=== PATIENT | male | born 1995 | race Caucasian/White ===

== ENCOUNTER 2017-03-09 13:39 | Emergency (ER) | payer OTHER ==
[2017-03-09 13:46] VITALS: BP 156/83; PULSE 87; TEMP 97.9; BMI 27.4
--- NOTE | 2017-03-09 15:30 | PDOC ---
History of Present Illness - General Chief Complaint: Chest Pain Stated Complaint: CHEST PAIN, Time Seen by Provider: 03/09/17 15:05 History Source: Patient Exam Limitations: No Limitations - History of Present Illness Travel History: No Initial Comments: 03/09/17 15:26 22 year old with no significant medical or surgical history presents with epigastric pain that radiated into upper chest accompanied by occasional shortness of breath. Also reports feeling anxious or nervous at times. States this feeling causes him to feel shortness of breath. Denies dizziness, nausea or dizziness 03/09/17 16:17 03/09/17 16:27 Timing/Duration: reports: constant Quality: reports: aching Abdominal Pain Onset Location: reports: epigastric Activities at Onset: reports: sleep Treatment Prior to Arrive: improves with: analgesics Alleviating Factors: improves with: None Past History - Travel Traveled outside of the country in the last 30 days: No Close contact w/someone who was outside of country & ill: No - Past Medical History Allergies/Adverse Reactions: Allergies Allergy/AdvReac Type Severity Reaction Status Date / Time hydrogen peroxide Allergy Verified 03/09/17 16:06 PEROXIDE Allergy Uncoded 03/09/17 13:46 Home Medications: Ambulatory Orders Acetaminophen [Pain Relief] 650 mg PO Q4H #20 tablet.er 03/09/17 Lansoprazole [Prevacid 24Hr (OTC) -] 15 mg PO DAILY #30 cap.sr 03/09/17 Other medical history: DENIES - Surgical History Abdominal Surgery: Yes (HERNIA) - Psycho/Social/Smoking Cessation Hx Suicidal Ideation: No Smoking History: Never smoked Information on smoking cessation initiated: No Hx Alcohol Use: No Drug/Substance Use Hx: No Substance Use Type: None Abd/GI Specific PMHX - Complaint Specific PMHX Colitis: No Diverticulitis: No Gall Bladder Disease: No GERD: No Hepatitis: No Irritable Bowel Synd (IBS): No Pancreatitis: No GI Ulcer Disease: No Review of Systems - Review of Systems Able to Perform ROS?: Yes Is the patient limited Hungarian proficient: No Constitutional: No: Chills, Fever, Malaise, Night Sweats, Weakness HEENTM: No: Double Vision, Cataracts, Ear Pain, Ear Discharge, Nose Congestion, Throat Swelling Respiratory: Yes: Cough, Shortness of Breath Cardiac (ROS): No: Edema, Irregular Heart Rate, Lightheadedness, Palpitations ABD/GI: Yes: Indigestion. No: Abdominal Distended, Difficulty Swallowing, Abdominal cramping Musculoskeletal: No: Back Pain, Muscle Weakness Integumentary: No: Bruising, Lesions Neurological: No: Headache, Numbness *Physical Exam - Vital Signs Last Vital Signs Temp Pulse Resp BP Pulse Ox 97.9 F 87 18 156/83 97 03/09/17 13:43 03/09/17 13:43 03/09/17 13:43 03/09/17 13:43 03/09/17 13:43 - Physical Exam General Appearance: Yes: Nourished, Appropriately Dressed. No: Apparent Distress HEENT: positive: EOMI, PORSCHE, TMs Normal, Pharynx Normal Neck: positive: Supple. negative: Lymphadenopathy (R), Lymphadenopathy (L) Respiratory/Chest: positive: Lungs Clear, Normal Breath Sounds. 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 NML intact, Fully Oriented, Alert, Normal Mood/ Affect Medical Decision Making - Medical Decision Making 03/09/17 16:19 22 year old male with GERD and anxiety Ekg: normal sinus rhythm maalox given with good relief acetaminophen 1 gm also given d/c home referred to [facility] for anxiety [facility] for medical provider Rx: prevacid acetaminophen 03/09/17 16:26 *DC/Admit/Observation/Transfer Diagnosis at time of Disposition: Anxiety as acute reaction to exceptional stress GERD (gastroesophageal reflux disease) Qualifiers: Esophagitis presence: esophagitis presence not specified Qualified Code(s): K21.9 - Gastro-esophageal reflux disease without esophagitis - Discharge Dispostion Disposition: HOME Condition at time of disposition: Good Admit: No - Prescriptions Prescriptions: Acetaminophen [Pain Relief] 650 mg PO Q4H #20 tablet.er Lansoprazole [Prevacid 24Hr (OTC) -] 15 mg PO DAILY #30 cap.sr - Patient Instructions Printed Discharge Instructions: Heartburn -- Overview, GERD Diet, DI for Gastroesophageal Reflux Disease (GERD) Additional Instructions: Please call Dr. Cage for appointment and assitance with anxiety issues also follow up at [facility] for primary physician. Return for chest pain with dizziness, nausea or shortness of breath - Post Discharge Activity Work/School Note: Back to Work
[2017-03-09] MEDS ORDERED: MAG HYDROX/AL HYDROX/SIMETH 30 ML UNIT-DOSE CUP PO ONE (15:32)
[2017-03-09] MEDS ORDERED: ACETAMINOPHEN 500 MG TABLET (FP) PO ONE (16:21)
[2017-03-09] MEDS ORDERED: ACETAMINOPHEN 500 MG TABLET (FP) ONE (16:23)
--- NOTE | 2017-03-13 12:18 | EKG ---
Test Reason : Blood Pressure : / mmHG Vent. Rate : 066 BPM Atrial Rate : 066 BPM P-R Int : 124 ms QRS Dur : 098 ms QT Int : 412 ms P-R-T Axes : 035 057 039 degrees QTc Int : 431 ms NORMAL SINUS RHYTHM WITH SINUS ARRHYTHMIA NORMAL ECG NO PREVIOUS ECGS AVAILABLE Confirmed by MD RENAY, CLARITA ([id number]) on 03/13/2017 12:18:01 PM Referred By: Confirmed By:CLARITA NIÑO MD
== END 2017-03-09 16:52 | disposition home or self-care (01) ==
LOC: JERFT 13:39 → JER 13:39 → JERFT 16:52
DX: F43.0 Acute stress reaction (principal); F41.8 Other specified anxiety disorders; K21.9 Gastro-esophageal reflux disease without esophagitis
CPT/HCPCS: 93005; 93010; 99281-25

== ENCOUNTER 2022-02-08 12:38 | Emergency (ER) | payer OTHER ==
[2022-02-08 12:45] VITALS: BP 148/75; PULSE 61; TEMP 97.9; BMI 28.7
[2022-02-08] MEDS ORDERED: IBUPROFEN 600 MG TABLET (FP) PO ONE ×2 (13:24→13:39)
== END 2022-02-08 14:19 | disposition home or self-care (01) ==
LOC: JERFT 12:38 → JER 12:38 → JERFT 14:19
DX: M25.561 Pain in right knee (principal)
CPT/HCPCS: 73562-TC-RT-FY; 93971-TC; 99284-25

== ENCOUNTER 2022-07-06 10:16 | Emergency (ER) | payer OTHER ==
[2022-07-06 10:19] VITALS: BP 118/74; PULSE 72; RESP 18; TEMP 98.2; BMI 28.1
[2022-07-06] MEDS ORDERED: LIDOCAINE 5% TOPICAL PATCH TP ONE (11:49)
[2022-07-06] MEDS ORDERED: ACETAMINOPHEN 325 MG TABLET (FP) PO ONE (11:49)
[2022-07-06] MEDS ORDERED: ACETAMINOPHEN 325 MG TABLET (FP) ONE (12:24)
[2022-07-06] MEDS ORDERED: LIDOCAINE 5% TOPICAL PATCH ONE (12:24)
[2022-07-06] MEDS ORDERED: LIDOCAINE PATCH REMOVAL MC ONE (22:00)
== END 2022-07-06 12:55 | disposition home or self-care (01) ==
LOC: JERFT 10:16
DX: M25.511 Pain in right shoulder (principal)
CPT/HCPCS: 73030-TC-RT-FY; 73060-TC-RT-FY; 99284-25